=== PATIENT | female | born 1970 | race Caucasian/White ===

== ENCOUNTER → 2023-07-16 11:10 | Outpatient (CLI) | payer OTHER, SELFPAY ==
--- NOTE | 2023-07-16 11:13 | DI.RAD.S_ITS ---
Bone Density Report Name: KAMRAN ZHENG Age: 52 Sex: Female Ethnicity: White Date of : 1970 Indication: postmenopausal; screening for osteoporosis; Referring Provider: BECKY MCKEON Study: Bone densitometry was performed. Exam Date: July 16, 2023 Accession number: [id number] Bone Density: Region BMD T-score Z-score Classification AP Spine(L1-L4) 1.246 1.8 2.8 Normal Femoral Neck (Left) 0.736 -1.0 0.0 Normal Total Hip (Left) 0.879 -0.5 0.1 Normal Femoral Neck (Right) 0.816 -0.3 0.7 Normal Total Hip (Right) 0.894 -0.4 0.2 Normal Total Hip Mean 0.886 -0.5 0.2 Normal World Health Organization criteria for BMD impression classify patients as: Normal (T-score at or above -1.0), Osteopenia (T-score between -1.0 and -2.5), or Osteoporosis (T-score at or below -2.5). 10-year Fracture Risk: FRAX not reported because: All T-scores for Spine Total, Hip Total, Femoral Neck at or above -1.0 Impression: The patient has normal bone mass. Discussion: BONE DENSITY IS ABOVE THE MINIMUM DESIRABLE LEVEL AT ALL SKELETAL SITES TESTED. This patient's bone mineral density is above the minimum desirable level (T-score -1.0 or better) at all sites measured. The patient should follow a healthful lifestyle (good nutrition with adequate calcium and vitamin D, and appropriate weight-bearing exercise). Follow-Up: Consider repeating this study in 5 years or sooner if there is some new clinical indication. Reported by: SANDER BENSON MD on 07/16/2023 11:46:00 AM.
== END ==
LOC: RAD 11:12
PROVIDERS: PCP Naturopath; Referring Provider Naturopath; Visit Provider Naturopath
DX: E83.52 Hypercalcemia (principal); Z13.820 Encounter for screening for osteoporosis; Z78.0 Asymptomatic menopausal state
CPT/HCPCS: 77080

== ENCOUNTER 2025-01-17 13:42 | Emergency (ER) | payer OTHER, SELFPAY ==
--- NOTE | 2025-01-17 14:06 | DI.RAD.S_ITS ---
PROCEDURE: XR FINGER RT MIN 2V INDICATIONS: ? injury R finger, dislocation TECHNIQUE: AP hand, 2 views of the 5th finger(s) acquired. COMPARISON: None. FINDINGS: Bones: Acute comminuted fracture involving 5th proximal phalangeal base with volar angulation and displacement at fracture site. No suspicious bony lesions. Soft tissues: No suspicious soft tissue calcifications. IMPRESSION: Acute comminuted and slightly displaced fracture involving 5th proximal phalangeal base. Dictated by: Zhang Austin M.D. on 01/17/2025 at 14:34 Approved by: Zhang Austin M.D. on 01/17/2025 at 14:34
[2025-01-17 15:11] VITALS: BP 150/70; PULSE 61; RESP 17; TEMP 36.6; O2SAT 100; BMI 25.0
[2025-01-17 21:03] VITALS: PULSE 75; O2SAT 100
--- NOTE | 2025-01-17 21:44 | ED.UPPEXIN ---
HPI - Extremity Injury (Upper) General Chief Complaint: Extremity Injury, Upper Stated Complaint: Possible dislocated right pinky finger Time Seen by Provider: 01/17/25 14:06 Source: patient Mode of arrival: Ambulatory History of Present Illness HPI narrative: 54-year-old female right-handed slipped and fell today on uneven surface, sustained injury to her right 5th and 4th fingers, no other injuries. Denied striking her head. No loss of consciousness. No nausea or vomiting. No injury above right wrist elbow shoulder. No left upper extremity or injuries. Small abrasion to the right knee without effusion able to ambulate. No neck pain. Related Data Home Medications ?Medication ?Instructions ?Recorded ?Confirmed No Known Home Medications 01/17/25 01/17/25 Allergies Allergy/AdvReac Type Severity Reaction Status Date / Time No Known Drug Allergies Allergy Verified 01/17/25 15:11 Patient History Smoking Status: Never smoker Exam Narrative Exam Narrative: GENERAL: Well-developed patient, in mild distress. HEAD: Atraumatic. Normocephalic. EYES: Pupils equal round and reactive. Extraocular motions intact. No scleral icterus. No injection or drainage. ENT: Nose without bleeding, purulent drainage. Throat without erythema, tonsillar hypertrophy or exudate. Airway patent. NECK: Trachea midline. Non tender CARDIOVASCULAR: Regular rate and rhythm without murmurs, gallops, or rubs. RESPIRATORY: Clear to auscultation. Breath sounds equal bilaterally. No wheezes, rales, or rhonchi. GASTROINTESTINAL: Abdomen soft, non-tender, nondistended. EXTREMITIES: Small abrasions anterior left knee without gross effusion, full extension and flexion. Tenderness and bruising to the left 5th MCP and 4th MCP without gross deformity. No tenderness to the right wrist, forearm, elbow, upper arm. BACK: Nontender without deformity or crepitance. No flank tenderness. NEURO: AOx3. Motor functions grossly nonfocal. SKIN: No rash or erythema of visible areas Initial Vital Signs Initial Vital Signs: Vital Signs Temperature 98 F 01/17/25 15:11 Pulse Rate 61 01/17/25 15:11 Respiratory Rate 17 01/17/25 15:11 Blood Pressure 150/70 H 01/17/25 15:11 Pulse Oximetry 100 01/17/25 15:11 Oxygen Delivery Method Room Air 01/17/25 15:11 Course Orders Ordered: Discontinued Medications Hydrocodone Bitart/Acetaminophen (Hydrocodone/Acet 5/325 Prepack) 1 bottle MISC DIRECTED ONE Stop: 01/17/25 21:46 Last Admin: 01/17/25 22:00 Dose: 1 bottle Documented By: Ibuprofen (Ibuprofen 400 Mg Tablet) 800 mg PO NOW ONE Stop: 01/17/25 22:03 Last Admin: 01/17/25 22:05 Dose: 800 mg Documented By: Vital Signs Vital signs: Vital Signs - 8 hr 01/17/25 15:11 01/17/25 21:03 Temperature 98 F Pulse Rate 61 75 Respiratory Rate 17 Blood Pressure 150/70 H Pulse Oximetry 100 100 Oxygen Delivery Method Room Air Room Air MDM - Extremity Injury (Upper) MDM Narrative Medical decision making narrative: GLF mechanical earlier today, pain swelling right 4th/5th fingers proximal, XRs show minimally displaced but comminuted fracture to proximal fifth phalyx finger proximal aspect. Placed ulnar gutter splint. Homepack pain meds. OTC NSAID advised. Discussed case with on-call ortho Dr White who can see patient in follow-up, possible surgery. FU with [facility], order placed. DC home. FU with orthopedic surgery. Return precautions discussed. Discharge Plan Departure Patient Disposition: Home Clinical Impression: Finger fracture, right Instructions: DI for Fracture, DI for Elbow Sprain Activity Restrictions/Additional Instructions: Mechanical fall with minor knee abrasion. Injury to the right 4th and 5th fingers. X-ray suspicious for comminuted fracture to the base of the proximal phalanx of the 5th finger. This might need surgery in follow up. Follow up with local orthopedic surgeon. Splinted. Pain medications provided. Sling and elevation and ice as tolerated. Call the office of orthopedic surgery tomorrow to arrange [place] follow up for possible surgical fixation planning. Prescriptions: No Action No Known Home Medications Referrals: Mahnaz Burns ND [Primary Care Provider, Naturopathy] Kylah White DO [Physician, Orthopedic Surgery] Stand Alone Forms: Patient Portal/API
[2025-01-17] MEDS: IBUPROFEN 400 MG TABLET 800 MG PO (22:05)
== END 2025-01-17 22:20 | disposition home or self-care (01) ==
PROVIDERS: Emergency Provider Emergency Medicine; PCP Naturopath
DX: S62.616A Displaced fracture of proximal phalanx of right little finger, initial encounter for closed fracture (principal); S80.211A Abrasion, right knee, initial encounter; W01.0XXA Fall on same level from slipping, tripping and stumbling without subsequent striking against object, initial encounter
CPT/HCPCS: 73140; 99283

== ENCOUNTER 2025-01-24 07:19 | Day surgery (SDC) | payer OTHER, SELFPAY ==
[2025-01-23 08:33] VITALS: BMI 25.0
[2025-01-24] VITALS (14 sets, daily range): BP systolic 112–148; BP diastolic 53–78; PULSE 47–69; RESP 14–24; TEMP 36.1–36.6; O2SAT 98–100; BMI 25.0
--- NOTE | 2025-01-24 | DI.RAD.S_ITS ---
PROCEDURE: XR HAND RT 2V INDICATIONS: Post operative imaging TECHNIQUE: 3 views of the hand(s) acquired. COMPARISON: [facility], CR, XR FINGER RT MIN 2V, 01/17/2025, 14:04. FINDINGS: Bones: Postsurgical changes compatible with placement of 2 K-wires for fixation of 5th proximal phalange fracture. There is near anatomic alignment of the fracture fragments following internal fixation. Soft tissues: No suspicious soft tissue calcifications. IMPRESSION: Expected postsurgical change for internal fixation of right 5th proximal phalange fracture. Dictated by: Krystina Addison MD, PhD on 01/24/2025 at 10:21 Approved by: Krystina Addison MD, PhD on 01/24/2025 at 10:22
[2025-01-24] MEDS: LACTATED RINGERS 1,000 ML 42 ML IV (08:17)
[2025-01-24] MEDS: FAMOTIDINE 20 MG/2 ML VIAL IV (08:17)
--- NOTE | 2025-01-24 08:21 | PM.PREOP ---
Pre-operative Note COVID-19 COVID-19 status: Not tested Interval Note History & Physical reviewed/Exam performed by Physician: Yes Changes to H&P: No
--- NOTE | 2025-01-24 09:03 | SUR.OPER ---
Supine on padded OR bed, head on pillow, non operative arm secured on padded arm boards at <90 degrees abduction, operative arm on padded arm board, legs uncrossed, safety belt at thigh, tape over blanket over lower legs. surgeon in room at time of positioning and approved final position. all pressure points padded and covered.
[2025-01-24] MEDS: LIDOCAINE 1% 20 ML INJ (09:13)
--- NOTE | 2025-01-24 09:43 | P.OP_ITS ---
Operative Date/Time/Diagnoses Date of procedure: 01/24/25 Time of procedure: 08:58 Pre-op diagnosis: small phalanx displaced fracture Post-op diagnosis: same Procedure & Clinicians Procedure: CRPP right small finger proximal phalanx Same procedure(s) as scheduled: Yes Surgeon: Kylah White Stamping Die Maker: Maria Eugenia Morris Anesthesia Type: MAC +/- and Local Operative Notes Findings: displaced small finger proximal phalanx - right Specimen(s): none sent Applied: implant(s) Estimated Blood Loss (mL): 2 Blood products transfused: none Procedure in detail: Procedure in detail: Patient was met in the preoperative holding area. The consent was reviewed. Initials were placed on the operative site. The patient was taken back to the operating room and placed in supine position. MAC was induced. A time-out was performed confirming the correct patient, correct procedure, correct extremity initials on the operative site. 6cc of 0.25% Marcaine and 1% lidocaine was placed as a digital block after chlorprep. Intraoperative fluoroscopy was utilized to reduce the small finger proximal phalanx and to 0.0045 K-wires were placed across the fracture site. I confirmed the fracture reduction and pin placement. The pins were cut and protective covering were placed. A sterile dressing was placed consisting of Xeroform, plain gauze, sterile Webril and an ulnar gutter splint. An fundraising assistant was used in this procedure for positioning fracture reduction and fixation as well as closure. The patient was awoken and taken to the PACU in stable condition all counts were correct at the end the case. Complications: none Complications: none Post-operative Condition: stable Disposition: PACU Complications: none Post-operative Condition: stable Disposition: PACU Plan for aftercare: Pins will stay in place for 4 weeks. Keep splint clean and dry. Follow up in 2 weeks for wound check.
[2025-01-24] MEDS: KETOROLAC 30 MG/ML VIAL 15 MG IV (09:47)
[2025-01-24] MEDS: ACETAMINOPHEN IV 1,000 MG/100 ML VIAL 400 MG IV (10:02)
[2025-01-24] MEDS: ONDANSETRON 4 MG/2 ML INJ IV (10:27)
== END 2025-01-24 11:05 | disposition home or self-care (01) ==
LOC: OR 07:21
PROVIDERS: PCP Naturopath; Referring Provider Naturopath; Visit Provider Orthopaedic Surgery
PROC: (CPT 26727; principal; 2025-01-24 08:45)
DX: S62.616A Displaced fracture of proximal phalanx of right little finger, initial encounter for closed fracture (principal); W01.0XXA Fall on same level from slipping, tripping and stumbling without subsequent striking against object, initial encounter; Y93.01 Activity, walking, marching and hiking
CPT/HCPCS: 26727; 73120; C1713; J0131; J0690; J1100; J1885; J2250; J2405; J2704; J3010

== ENCOUNTER 2025-03-06 11:26 | Day surgery (SDC) | payer OTHER, SELFPAY ==
[2025-03-05 14:52] VITALS: BMI 23.6
--- NOTE | 2025-03-06 | DI.RAD.S_ITS ---
PROCEDURE: XR HAND RT MIN 3V
--- NOTE | 2025-03-06 12:06 | P.OP.PRE_ITS ---
Pre-operative Note
--- NOTE | 2025-03-06 12:06 | PM.PREOP ---
Pre-operative Note COVID-19 COVID-19 status: Not tested Interval Note History & Physical reviewed/Exam performed by Physician: Yes Changes to H&P: No
[2025-03-06 12:07] VITALS: BP 139/63; PULSE 66; RESP 16; TEMP 36.2; O2SAT 97
[2025-03-06] MEDS: LACTATED RINGERS 1,000 ML 42 ML IV (12:14)
--- NOTE | 2025-03-06 12:25 | SUR.OPER ---
supine on gurney, head on pillow, left arm at side, left siderail up.
[2025-03-06 12:28] VITALS: BP 122/64; PULSE 70; RESP 18; TEMP 36.8; O2SAT 96
[2025-03-06] MEDS: LIDOCAINE 1% 20 ML INJ (12:34)
[2025-03-06 12:39] VITALS: BP 123/59; PULSE 56; RESP 18; TEMP 36.6; O2SAT 98
[2025-03-06 12:47] VITALS: BP 122/60; PULSE 65; RESP 15; TEMP 36.8; O2SAT 98
--- NOTE | 2025-03-06 14:03 | P.OP_ITS ---
Operative Date/Time/Diagnoses
--- NOTE | 2025-03-06 14:03 | PM.OP.1 ---
Operative Date/Time/Diagnoses Date of procedure: 03/06/25 Time of procedure: 12:00 Pre-op diagnosis: pins right hand - one buried Post-op diagnosis: same Procedure & Clinicians Procedure: removal of hardware right hand Same procedure(s) as scheduled: Yes Surgeon: Kylah White Assisted?: No Anesthesia Type: MAC +/- (0.5 cc of lidocaine 1%) Operative Notes Findings: one buried pin in prox phalanx of small finger and one exposed Closure Type: not applicable Specimen(s): none sent Applied: none Estimated Blood Loss (mL): 2 Blood products transfused: none Procedure in detail: the patient was prepped and draped in the standard sterile fashion and 0.5 cc of lidocaine was use as a field block at the buried pin. THe pin was exposed and both pins were removed. a sterile dressing was applied and the patient was transferred to the recovery room. Complications: none Post-operative Condition: stable Disposition: PACU
== END 2025-03-06 13:27 | disposition home or self-care (01) ==
LOC: OR 11:28
PROVIDERS: PCP Naturopath; Referring Provider Orthopaedic Surgery; Visit Provider Orthopaedic Surgery
PROC: (CPT 20680; principal; 2025-03-06 13:45)
DX: Z47.2 Encounter for removal of internal fixation device (principal)
CPT/HCPCS: 20680; 73130; J2704; J7120